=== PATIENT | female | born 1975 | race Caucasian/White ===

== ENCOUNTER 2021-07-07 08:36 | Emergency (ER) | payer SELFPAY ==
[~2021-07-07] VITALS: Ht 165.1 cm; Wt 100.0 kg
[2021-07-07 09:30] VITALS: BP 132/60
[2021-07-07] MEDS ORDERED: ACETAMINOPHEN 325MG TABLET PO ONE (09:30)
== END 2021-07-07 09:56 | disposition home or self-care (01) ==
LOC: ER 09:01
DX: T40.1X1D Poisoning by heroin, accidental (unintentional), subsequent encounter (principal); R55 Syncope and collapse; F11.188 Opioid abuse with other opioid-induced disorder; Y93.89 Activity, other specified; Y92.89 Other specified places as the place of occurrence of the external cause
CPT/HCPCS: 93005; 99283